=== PATIENT | female | born 1970 | race Caucasian/White ===

== ENCOUNTER 2017-02-11 20:36 | Emergency (ER) | payer SELFPAY ==
[~2017-02-11] VITALS: Ht 167.6 cm; Wt 86.2 kg
[~2017-02-11 20:36] MED LIST: BACTRIM DS TAB1 EAC1 ORAL; CEPHALEXIN500 MG ORAL; IBUPROFEN600 MG ORAL; IBUPROFEN800 MG ORAL; NKM; NORCO 5-325 TA1 EACH ORAL; TRAMADOL HCL50 MG ORAL
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
[2017-02-11] MEDS ORDERED: IBUPROFEN600 MG ORAL (21:28)
[2017-02-11 21:39] VITALS: BP 120/88
--- NOTE | 2017-02-12 09:55 | Diagnostic Imaging Report ---
Indications: TRAUMA, pain, fall Technique: Two views of the left forearm Comparison: None Findings: No acute fractures. No dislocations. No radiopaque foreign body. Impression: Negative
== END 2017-02-11 21:39 | disposition home or self-care (01) ==
LOC: EMR 21:05 → MERGE 21:05 → EMR 21:39
DX: S50.12XA Contusion of left forearm, initial encounter (principal); S83.91XA Sprain of unspecified site of right knee, initial encounter; B19.20 Unspecified viral hepatitis C without hepatic coma; F17.200 Nicotine dependence, unspecified, uncomplicated; F19.10 Other psychoactive substance abuse, uncomplicated; W01.0XXA Fall on same level from slipping, tripping and stumbling without subsequent striking against object, initial encounter; Y92.9 Unspecified place or not applicable
CPT/HCPCS: 99283

== ENCOUNTER 2020-03-24 22:30 | Emergency (ER) | payer SELFPAY ==
[~2020-03-24] VITALS: Ht 167.6 cm; Wt 86.2 kg
[~2020-03-24 22:30] MED LIST changes: +AUGMENTIN 875-1 EAC1 ORAL
[2020-03-24 22:35] VITALS: BP 167/94
--- NOTE | 2020-03-24 22:35 | NUR ---
ED Nurse Note: Patient walked into ED for c/o R knee pain/swelling onset 4 days ago. She states she slipped on some water and twisted her knee. She is ambulatory. NAD noted. Pt aaox4, breathing is normal and unlabored.
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
[2020-03-24] MEDS ORDERED: HYDROcodone/Acetamin 5/325 tab ORAL ONE (22:45)
[2020-03-24] MEDS ORDERED: HYDROCODON-ACE1 EA15 ORAL (22:51)
[2020-03-24] MEDS ORDERED: IBUPROFEN600 M1 ORAL (22:51)
--- NOTE | 2020-03-24 22:55 | NUR ---
ED Nurse Note: Pt placed in knee immobilizer and given crutches. Patient able to verbalize understanding and provide return demonstration with crutch use.
[2020-03-24 23:00] VITALS: BP 159/95
--- NOTE | 2020-03-24 23:00 | NUR ---
ER DISCHARGE NOTE: Patient is cleared to be discharged per ERMD, pt is aox4, on room air, with stable vital signs. MD aware of bp. pt was given dc and prescription instructions, pt was able to verbalize understanding, pt id band removed. pt is able to ambulate with steady gait. pt took all belongings.
--- NOTE | 2020-03-24 23:30 | NUR ---
Note undone in EDM - 03/25/20 at 0000 by MALIA ER DISCHARGE NOTE: Patient is cleared to be discharged per ERMD, pt is aox4, on room air, with stable vital signs. pt was given dc and paper prescription instructions with instructions to f/u with PMD, pt was able to verbalize understanding, pt id band and iv site removed without complications. pt is able to ambulate with steady gait. pt took all belongings.
--- NOTE | 2020-03-25 16:16 | Diagnostic Imaging Report ---
Indication: Knee pain Technique: 3 views of the right knee Comparison: None Findings: There is degenerative narrowing of the lateral joint compartment and of the patellofemoral joint compartment. There is questionably a small suprapatellar effusion. No acute fractures. No dislocations. Lateral view demonstrates possibly one or more intra-articular loose bodies in the posterior joint. Impression: Acute bony trauma Possible small suprapatellar effusion Degenerative changes, as described Cannot rule out one or more small intra-articular loose bodies
== END 2020-03-24 23:00 | disposition home or self-care (01) ==
LOC: EMR 22:43
DX: S83.91XA Sprain of unspecified site of right knee, initial encounter (principal); Z86.19 Personal history of other infectious and parasitic diseases; W01.0XXA Fall on same level from slipping, tripping and stumbling without subsequent striking against object, initial encounter; Y92.9 Unspecified place or not applicable
CPT/HCPCS: 99283

== ENCOUNTER 2020-04-19 14:42 | Emergency (ER) | payer SELFPAY ==
[~2020-04-19] VITALS: Ht 167.6 cm; Wt 90.7 kg
[~2020-04-19 14:42] MED LIST changes: +HYDROCODON-ACE1 EA15 ORAL; +IBUPROFEN600 M1 ORAL
[2020-04-19] MEDS ORDERED: Solu-MEDROL 125mg Inj IVP ONE (15:00)
[2020-04-19] MEDS ORDERED: Vancomycin 1 GM in NS 275 ML IV ONE (15:00)
[2020-04-19] MEDS ORDERED: Albuterol/Ipratropium 3ml neb HHN SCH (15:00)
[2020-04-19] MEDS ORDERED: Cefepime HCl 2 GM in NS 110 ML IV ONE (15:00)
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
--- NOTE | 2020-04-19 15:22 | NUR ---
ED Nurse Note: LI Almonte states to cancel EKG.
[2020-04-19 15:48] VITALS: BP 160/101
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
[2020-04-19] MEDS ORDERED: HYDROcodone/Acetamin 5/325 tab ORAL ONE (16:15)
--- NOTE | 2020-04-19 16:42 | Diagnostic Imaging Report ---
Indication: Pain, status post fall, laceration Technique: Spiral acquisitions obtained through the cervical spine. No IV contrast utilized. Multiplanar reconstructions were generated. Total dose length product 425 mGycm. CTDIvol(s) 20 mGy. Dose reduction achieved using automated exposure control. Comparison: none Findings: There is straightening of the normal cervical lordosis. No acute fractures. No dislocations. Vertebral body heights are preserved. Disc spaces are preserved. At C3-4, there is severe narrowing of the right and mild narrowing of the left neural foramina. No significant disc bulge or protrusion or spinal stenosis. At the remaining disc levels, no significant disc bulge or protrusion, spinal stenosis, or neural foraminal stenosis. The surrounding soft tissues are unremarkable. 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
--- NOTE | 2020-04-19 16:46 | Diagnostic Imaging Report ---
Indications: Pain in head laceration Technique: Spiral acquisitions obtained through the brain. Angled axial and coronal 5 x 5 mm slices were reconstructed. Total dose length product 92 mGycm. CTDI vol(s) 53 mGy. Dose reduction achieved using automated exposure control Comparison: None. Findings: There is a high left parietal scalp hematoma. No underlying calvarial fracture. No acute intracranial hemorrhage or edema, mass effect, nor midline shift. Normal quan-white differentiation. Normal size ventricles and extra axial CSF spaces. Intact calvarium. Impression: Negative for acute intracranial bleed or mass effect Positive for left parietal scalp hematoma The CT scanner at [facility] is accredited by the [employer] and the scans are performed using protocols designed to limit radiation exposure to as low as reasonably achievable to attain images of sufficient resolution adequate for diagnostic evaluation.
[2020-04-19] MEDS ORDERED: TRAMADOL HCL50 MG ORAL (17:17)
[2020-04-19] MEDS ORDERED: LIDODERM700 M1 TOPIC (17:17)
[2020-04-19] MEDS ORDERED: BACITRACIN15 GM TOPIC (17:17)
[2020-04-19] MEDS ORDERED: TYLENOL EXTRA500 MG ORAL (17:17)
--- NOTE | 2020-04-19 17:36 | NUR ---
ED Nurse Note: RIGHT KNEE IMMOBILZIER PLACED PER ERPA-C. PT DISCHARGE AND PRESCRIPTIONS INSTRUCTIONS EXPLAINED PT REPORTS UNDERSTANDING. ID BAND REMOVED
[2020-04-19 17:37] VITALS: BP 155/95
--- NOTE | 2020-04-19 18:00 | Diagnostic Imaging Report ---
Indication: Right knee pain Technique: 3 views of the knee Comparison: None Findings: There is a small effusion. There are degenerative changes of the medial and patellofemoral joint compartments. No acute fractures. No dislocations. Impression: Degenerative changes. No acute bony trauma
--- NOTE | 2020-04-19 18:01 | Diagnostic Imaging Report ---
Indication: Left knee pain Technique: 3 views of the knee Comparison: None Findings: No acute fractures. No dislocations. Joint spaces are preserved Impression: Negative
--- NOTE | 2020-04-20 13:26 | Diagnostic Imaging Report ---
Indication: Chest pain Technique: One view of the chest Comparison: none Findings: Lungs and pleural spaces are clear. Heart size is normal. Impression: No acute process
== END 2020-04-19 17:36 | disposition home or self-care (01) ==
LOC: EMR 16:59
DX: S00.01XA Abrasion of scalp, initial encounter (principal); S16.1XXA Strain of muscle, fascia and tendon at neck level, initial encounter; S00.03XA Contusion of scalp, initial encounter; S80.02XA Contusion of left knee, initial encounter; S80.01XA Contusion of right knee, initial encounter; V18.0XXA Pedal cycle driver injured in noncollision transport accident in nontraffic accident, initial encounter; Y93.55 Activity, bike riding; B19.20 Unspecified viral hepatitis C without hepatic coma; M47.812 Spondylosis without myelopathy or radiculopathy, cervical region; M48.02 Spinal stenosis, cervical region; M17.11 Unilateral primary osteoarthritis, right knee
CPT/HCPCS: 70450; 71045; 72125; 99284